=== PATIENT | female | born 1990 | race Caucasian/White ===

== ENCOUNTER → 2021-01-24 | Outpatient (CLI) | payer SELFPAY ==
[2016-05-12 09:32] VITALS: BP 118/66
[~2021-01-24] MED LIST: AMOXICILLIN 50500 MG PO; ANUSOL-HC SUPPO25 MG RC; FLAGYL500 M1 PO; NYAMYC100000 U/G TP; PRENATA1 CTB PO; PRENATAL VITAMI1 TAB PO
== END ==
LOC: LAB 08:07
DX: Z20.822 Contact with and (suspected) exposure to COVID-19 (principal)

== ENCOUNTER 2021-02-05 15:57 | Emergency (ER) | payer SELFPAY ==
[~2021-02-05 15:57] MED LIST changes: -FLAGYL500 M1 PO; -PRENATA1 CTB PO
[2021-02-05] MEDS ORDERED: PRENATA1 CTB PO (16:12)
[2021-02-05 16:48] LABS: EOS # 0.1 (0.04-0.40); EOS % 1.2 % (1.0-5.0); HEMATOCRIT 39.2 % (37.0-47.0); HEMOGLOBIN 12.8 g/dL (12.5-16.0); LYMPH# 2.2 (1.50-4.00); MEAN CELL VOLUME 93 fl (78-100); MEAN CORPUSCULAR HEMOGLOBIN 30 pg (27-31); MEAN CORPUSCULAR HGB CONC 33 g/dL (33-37); MEAN PLATELET VOLUME 11.5 fl (7.4-10.4); MONO # 0.6 (0.20-0.80); NEU # 6.2 (1.40-6.50); PLATELET COUNT 190 K/mm3 (130-400); RED BLOOD COUNT 4.22 M/mm3 (4.10-5.30); RED CELL DISTRIBUTION WIDTH 12.4 % (11.5-14.5); WHITE BLOOD COUNT 9.1 K/mm3 (4.8-10.8)
[2021-02-05 16:50] LABS: ALBUMIN 4.4 g/dL (3.5-5.0); POTASSIUM 3.8 mmol/L (3.5-5.1)
[2021-02-05 16:51] LABS: CALCIUM 8.9 mg/dL (8.3-10.5)
[2021-02-05 16:53] LABS: TOTAL PROTEIN 7.1 g/dL (6.4-8.3)
[2021-02-05 16:54] LABS: TOTAL BILIRUBIN 0.3 mg/dL (0.2-1.2)
[2021-02-05 17:07] LABS: CLUE CELLS PRESENT (Not Observd)
[2021-02-05] MEDS ORDERED: FLAGYL500 M1 PO (17:15)
[2021-02-05 18:07] LABS: URINE APPEARANCE CLEAR; URINE BILIRUBIN NEGATIVE (NEGATIVE); URINE BLOOD TRACE (NEGATIVE); URINE COLOR YELLOW; URINE GLUCOSE NEGATIVE (NEGATIVE); URINE KETONE NEGATIVE (NEGATIVE); URINE LEUKOCYTE ESTERASE NEGATIVE (NEGATIVE); URINE NITRATE NEGATIVE (NEGATIVE); URINE PROTEIN(semi-quant) NEGATIVE (NEGATIVE); URINE UROBILINOGEN NORMAL (NORMAL); URINE WBC 0-1 /hpf (0-3)
[2021-02-05 18:33] VITALS: BP 108/66
== END 2021-02-05 18:34 | disposition home or self-care (01) ==
LOC: ED 15:57
PROVIDERS: Nurse Practitioner
DX: O23.591 Infection of other part of genital tract in pregnancy, first trimester (principal); N76.0 Acute vaginitis; O46.91 Antepartum hemorrhage, unspecified, first trimester; O99.331 Smoking (tobacco) complicating pregnancy, first trimester; Z3A.08 8 weeks gestation of pregnancy
CPT/HCPCS: Q0111